=== PATIENT | female | born 1995 | race African-American/Black ===

== ENCOUNTER 2018-09-15 17:09 | Emergency (ER) | payer OTHER, SELFPAY ==
[2018-09-15 17:20] VITALS: BP 119/86; PULSE 97; RESP 18; TEMP 36.2; O2SAT 100; BMI 37.5
[2018-09-15 19:16] LABS: Bacteria Urine Moderate (10-30); Culture Indicated Urine Specimen Cultured; RBC Urine 0-1/HPF (0-5/HPF); Squamous Epithelial Cell Urine 1-5 /HPF; Transitional Epi Cells Urine 1-5/HPF (0-5/HPF); WBC Urine 5-10/HPF (0-5/HPF)
--- NOTE | 2018-09-15 22:43 | ED_ITS ---
HPI - Nausea/Vomiting/Diarrhea General Chief complaint: Nausea/Vomiting/Diarrhea Stated complaint: vomiting and diarrhea x3-4 wks Time Seen by Provider: 09/15/18 22:16 Source: patient and family Mode of arrival: ambulatory Limitations: no limitations History of Present Illness HPI Narrative: 23-year-old female, nonsmoker otherwise healthy presents with multiple family members for evaluation of nausea and vomiting which has persisted for over a month. Her symptoms were 1st evaluated about 1 month ago when she became dizzy and lightheaded and [place] She had IVs placed and was given fluids and antiemetics. Lab workup was unremarkable. Since then she has had a few episodes of syncope or near- syncope thought likely due to decreased oral intake. She denies any weight loss. She states she could be as her last. Id is a few days late. She has had no fever chills and denies any significant abdominal pain. MD complaint: nausea and vomiting Onset (ago): month(s) Description of Vomiting: watery Description of Diarrhea: none Associated Abdominal Pain: Yes Location of pain: diffuse Severity: mild Quality: cramping Relieving factors: none Associated symptoms: denies other symptoms Related Data Allergies Allergy/AdvReac Type Severity Reaction Status Date / Time No Known Drug Allergies Allergy Verified 09/15/18 17:59 Review of Systems Review of Systems All systems reviewed & are unremarkable except as noted in HPI and below Constitutional Denies chills, Denies fever(s), Denies lethargy and Denies weakness Eyes Denies change in vision, Denies eye discharge, Denies irritation and Denies loss of vision ENT Ears, Nose, Mouth, and Throat: Denies change in voice, Denies neck pain and Denies sore throat Cardiovascular Denies chest pain, Denies irregular heart rhythm, Denies lightheadedness, Denies palpitations, Denies dyspnea, Denies dyspnea on exertion and Denies orthopnea Respiratory Denies cough, Denies dyspnea, Denies dyspnea on exertion and Denies wheezing Gastrointestinal Gastrointestinal: Reports abdominal pain, Denies change in bowel habits, Denies diarrhea, Reports nausea and Reports vomiting Genitourinary Denies hematuria, Denies flank pain, Denies urinary incontinence and Denies urinary urgency Musculoskeletal Denies neck pain Integumentary/Breasts Denies pruritus, Denies erythema, Denies rash and Denies wounds Neurologic Denies confusion, Denies loss of vision and Denies weakness Psychiatric Denies anxiety, Denies confusion, Denies depression, Denies homicidal ideation and Denies suicidal ideation Endocrine Denies palpitations Hematologic/Lymphatic Denies easy bruising Allergic/Immunologic Denies wheezing [facility] Social History Smoking Status: Never smoker Exam Narrative Exam Narrative: GENERAL: This is a well-nourished, well-developed patient, in mild distress. HEAD: Atraumatic. Normocephalic. No temporal or scalp tenderness. EYES: Pupils equal round and reactive. Extraocular motions intact. No scleral icterus. No injection or drainage. ENT: Nose without bleeding, purulent drainage or septal hematoma. Throat without erythema, tonsillar hypertrophy or exudate. Uvula midline. Airway patent. NECK: Trachea midline. No JVD or lymphadenopathy. Supple, nontender, no meningeal signs. CARDIOVASCULAR: Regular rate and rhythm without murmurs, gallops, or rubs. RESPIRATORY: Clear to auscultation. Breath sounds equal bilaterally. No wheezes , rales, or rhonchi. GASTROINTESTINAL: Abdomen soft, non-tender, nondistended. No hepato-splenomegaly , or palpable masses. No guarding. EXTREMITIES: No clubbing, cyanosis, or edema. No joint tenderness, effusion, or edema noted. BACK: Nontender without deformity or crepitance. No flank tenderness. NEURO: AOx3. SKIN: No rash or erythema. Initial Vital Signs Initial Vital Signs: Vital Signs Temperature 97.1 F L 09/15/18 17:20 Pulse Rate 97 H 09/15/18 17:20 Respiratory Rate 18 09/15/18 17:20 Blood Pressure 119/86 09/15/18 17:20 Pulse Oximetry 100 09/15/18 17:20 Course Orders Ordered: ED Orders 09/15/18 19:07 Urine Culture Stat Urine Microscopic Stat 09/15/18 23:09 Basic Metabolic Panel Stat Complete Blood Count AUTO DIFF Stat HCG Quantitative Stat Discontinued Medications Sodium Chloride (Normal Saline 0.9%) 1,000 mls @ 1,000 mls/hr IV BOLUS ONE Stop: 09/15/18 23:35 Last Infusion: 09/16/18 00:17 Dose: 0 mls/hr Admin: 09/15/18 22:48 Dose: 1,000 mls/hr Ondansetron HCl (Zofran) 4 mg IV Q4HR PRN PRN Reason: Nausea And Vomiting Last Admin: 09/15/18 22:48 Dose: 4 mg Vital Signs - 8 hr 09/16/18 00:16 Temperature 98.0 F Pulse Rate 84 Respiratory Rate 16 Blood Pressure 113/72 Pulse Oximetry 100 MDM - Nausea/Vomiting/Diarrhea Lab Data Result diagrams: 09/15/18 23:09 09/15/18 23:09 Lab Results 09/15/18 09/15/18 09/15/18 Range/Units 19:07 23:09 23:09 WBC 6.9 (4.5-11.0) X10^3/uL RBC 4.70 (4.0-5.2) X10^6/uL Hgb 12.7 (12.0-16.0) g/dL Hct 38.7 (36-46) % MCV 82.4 (80-100) fL MCH 27.1 (26-34) PG MCHC 32.9 (30-36) % RDW 15.4 H (11.6-14.8) % Plt Count 486 H (150-400) X10^3/uL Neut % (Auto) 59.2 (50-75) % Lymph % (Auto) 33.3 (25-40) % [place] % (Auto) 6.2 (3-14) % Eos % (Auto) 0.5 L (2-4) % Baso % (Auto) 0.8 (0-2) % Neut # (Auto) 4100 (7721-9708) /uL Sodium (137-145) mmol/L Potassium (3.4-5.1) mmol/L Chloride (98-107) mmol/L Carbon Dioxide (22-32) mmol/L BUN (7-17) mg/dL Creatinine (0.52-1.04) mg/dL Estimated GFR (>60) mL/min BUN/Creatinine Ratio (6-22) Glucose (70-100) mg/dL Calcium (8.4-10.2) mg/dL HCG, Quant < 2.39 mIU/mL Urine RBC 0-1/hpf (0-5/HPF) Urine WBC 5-10/hpf H (0-5/HPF) Ur Squamous Epith Cells 1-5 /hpf Ur Transition Epith Cell 1-5/hpf (0-5/HPF) Urine Bacteria Moderate (10-30) H (None) Ur Culture Indicated? Specimen cultured Micro UA Comment Not Reportable 09/15/18 Range/Units 23:09 WBC (4.5-11.0) X10^3/uL RBC (4.0-5.2) X10^6/uL Hgb (12.0-16.0) g/dL Hct (36-46) % MCV (80-100) fL MCH (26-34) PG MCHC (30-36) % RDW (11.6-14.8) % Plt Count (150-400) X10^3/uL Neut % (Auto) (50-75) % Lymph % (Auto) (25-40) % [place] % (Auto) (3-14) % Eos % (Auto) (2-4) % Baso % (Auto) (0-2) % Neut # (Auto) (3955-2863) /uL Sodium 142 (137-145) mmol/L Potassium 4.3 (3.4-5.1) mmol/L Chloride 103 (98-107) mmol/L Carbon Dioxide 26 (22-32) mmol/L BUN 10 (7-17) mg/dL Creatinine 0.70 (0.52-1.04) mg/dL Estimated GFR > 60.0 (>60) mL/min BUN/Creatinine Ratio 14.3 (6-22) Glucose 90 (70-100) mg/dL Calcium 9.4 (8.4-10.2) mg/dL HCG, Quant mIU/mL Urine RBC (0-5/HPF) Urine WBC (0-5/HPF) Ur Squamous Epith Cells Ur Transition Epith Cell (0-5/HPF) Urine Bacteria (None) Ur Culture Indicated? Micro UA Comment Point of Care Testing Test Results Negative Urine Dip Bedside Urine Glucose Negative Bedside Urine Bilirubin - Negative Bedside Urine Ketone - Negative Urine Specific [place] 1.025 Bedside Urine Occult Blood - Negative Bedside Urine pH 6.5 Bedside Urine Protein +/- 15 Bedside Urine Urobilinogen - Negative Bedside Urine Nitrite + Positive Bedside Urine Leukocytes - Negative Esterase Discharge Plan Departure Patient Disposition: Home Clinical Impression: Vomiting Discharge Date/Time: 09/16/18 00:16 Interventions: ED Discharge Assessment Last Done: 09/16/18 00:16 Instructions: DI for Vomiting -- Adult Activity Restrictions/Additional Instructions: 1. Drink plenty of fluids with frequent small sips. 2. For the next 24 hours a clear liquid diet is advised. After that please employ a brat diet which would include bananas, rice, apples, toast. 3. Please take medications as directed. 4. Please follow-up with your doctor in the next 1-2 days. Call the office for an appointment. It seems reasonable to talk with them about a possible referral to a GI specialist 5. Please return to the emergency Department for any worsening or persistent symptoms, such as increasing pain or fever.
[2018-09-15] MEDS: SODIUM CHLORIDE 0.9% 1,000 ML 1000 ML IV (22:48)
[2018-09-15] MEDS: ONDANSETRON 4 MG/2 ML INJ IV (22:48)
[2018-09-15 23:23] LABS: Add Manual Diff / Slide Review NO; Basophils Percent Auto 0.8 % (0-2); Eosinophils Percent Auto 0.5 % (2-4); Hematocrit 38.7 % (36-46); Hemoglobin 12.7 g/dL (12.0-16.0); Lymphocytes Percent Auto 33.3 % (25-40); Mean Corpuscular HGB Conc 32.9 % (30-36); Mean Corpuscular Hemoglobin 27.1 PG (26-34); Mean Corpuscular Volume 82.4 fL (80-100); Monocytes Percent Auto 6.2 % (3-14); Neutrophils Absolute Auto 4100 /uL (1500-7000); Neutrophils Percent Auto 59.2 % (50-75); Platelet Count 486 X10^3/uL (150-400); Red Cell Distribution Width 15.4 % (11.6-14.8); White Blood Cell Count 6.9 X10^3/uL (4.5-11.0)
[2018-09-15 23:25] LABS: BUN Creatinine Ratio 14.3 (6-22); Blood Urea Nitrogen 10 mg/dL (7-17); Calcium 9.4 mg/dL (8.4-10.2); Carbon Dioxide 26 mmol/L (22-32); Chloride 103 mmol/L (98-107); Estimated Glomerular Filt Rate > 60.0 mL/min (>60); Glucose 90 mg/dL (70-100); HEMOLYSIS < 15 (0-50); Potassium 4.3 mmol/L (3.4-5.1); Sodium 142 mmol/L (137-145)
[2018-09-15 23:42] LABS: HCG Quantitative /Beta subunit < 2.39 mIU/mL
[2018-09-16 00:16] VITALS: BP 113/72; PULSE 84; RESP 16; TEMP 36.7; O2SAT 100
== END 2018-09-16 00:16 | disposition home or self-care (01) ==
PROVIDERS: Emergency Provider Emergency Medicine
DX: R11.10 Vomiting, unspecified (principal)
CPT/HCPCS: 36591; 80048; 81003; 81015; 81025; 84702; 85025; 87077; 87086; 87186; 96361; 96374; 99281; 99284; J2405

== ENCOUNTER 2018-12-07 10:22 | Emergency (ER) | payer OTHER, SELFPAY ==
[2018-12-07 10:31] VITALS: BP 131/95; PULSE 81; RESP 16; TEMP 36.7; O2SAT 100
--- NOTE | 2018-12-07 12:04 | ED.HA ---
HPI - Headache <Lauren Miles PA-C - Last Filed: 12/07/18 18:44> General Chief Complaint: Headache Stated Complaint: PAIN IN BACK OF HEAD LEFT SIDE Time Seen by Provider: 12/07/18 12:27 Source: patient Mode of arrival: ambulatory Limitations: no limitations History of Present Illness HPI Narrative: This generally healthy 23-year-old female complains of left-sided headache, more in the back of her head, since Thursday evening. She states that it started out mild, but persisted on Thursday despite taking acetaminophen. She states that when she woke up yesterday morning and went to get out of bed she felt dizzy ?like the room was spinning when I stood up? and states that made her fall. She states that she has not tried other medicines for the pain, but headache has persisted, also associated with photophobia and nausea. She states that she has not had any food or fluids today. She denies any vision change. She states that she has continued to have some of the dizziness intermittently, i.e. occurred again when she got out of bed this morning. She does not have any fever. She denies any neck pain. She denies any recent illness or upper respiratory symptoms. She states that she had a similar headache some years ago but more generalized, resolved after injection at the hospital. She states that she is concerned because she has a maternal aunt and great aunt who had CVA at a young age. No family history of headache or migraine, mom has a history of vertigo she says. She states that she wants to get , not currently. She states that until yesterday she had been going about her usual activities with the headache and mostly able to ignore it. Related Data Allergies Allergy/AdvReac Type Severity Reaction Status Date / Time metoclopramide [From Reglan] AdvReac Verified 12/07/18 13:03 Review of Systems <Lauren Miles PA-C - Last Filed: 12/07/18 18:44> Review of Systems ROS Unobtainable: All systems reviewed & are unremarkable except as noted in HPI and below PFSH <Lauren Miles PA-C - Last Filed: 12/07/18 18:44> Medical History Patient denies medical problems (Chronic) Surgical History No pertinent past surgical history (Chronic) Social History Smoking Status: Never smoker Social History Smoking Status: Never smoker Exam <Lauren Miles PA-C - Last Filed: 12/07/18 18:44> Narrative Exam Narrative: GENERAL APPEARANCE: Patient sitting comfortably, in no distress. HEENT: PERRL, EOMI, TMs slightly dull, normal oropharynx, no sinus TTP NECK: Supple, no masses LUNGS: Clear to auscultation bilaterally. HEART: Rate and rhythm regular without murmur, normal S1 and S2, no S3 or S4. NEUROLOGIC: Alert and oriented, normal speech and coordination. Able to elicit vertigo with whole like maneuver MUSCULOSKELETAL: Full Csp AROM, no tenderness over cervical spine or musculature Initial Vital Signs Initial Vital Signs: Vital Signs Temperature 98.1 F 12/07/18 10:31 Pulse Rate 81 12/07/18 10:31 Respiratory Rate 16 12/07/18 10:31 Blood Pressure 131/95 H 12/07/18 10:31 Pulse Oximetry 100 12/07/18 10:31 <Roland Hernandez DO - Last Filed: 12/07/18 19:43> Initial Vital Signs Initial Vital Signs: Vital Signs Temperature 98.1 F 12/07/18 10:31 Pulse Rate 81 12/07/18 10:31 Respiratory Rate 16 12/07/18 10:31 Blood Pressure 131/95 H 12/07/18 10:31 Pulse Oximetry 100 12/07/18 10:31 Course <Laruen Miles PA-C - Last Filed: 12/07/18 18:44> Additional Information: Patient is a feeling significantly improved in terms of her headache, nausea and vertigo at the time of discharge. She requested discharge secondary to receiving a phone call that a family friend had . She agreed to return if any acutely worsening symptoms again. Suspect occasional mild migraine given her previous LANDEROS associated with some photophobia and nausea Orders Ordered: Discontinued Medications Sodium Chloride (Normal Saline 0.9%) 1,000 mls @ 1,000 mls/hr IV BOLUS ONE Stop: 12/07/18 13:40 Last Infusion: 12/07/18 13:46 Dose: 0 mls/hr Admin: 12/07/18 13:04 Dose: 1,000 mls/hr Ketorolac Tromethamine (Toradol) 30 mg IV NOW ONE Stop: 12/07/18 12:42 Last Admin: 12/07/18 13:04 Dose: 30 mg Ondansetron HCl (Zofran) 4 mg IV NOW ONE Stop: 12/07/18 12:42 Last Admin: 12/07/18 13:04 Dose: 4 mg Vital Signs - 8 hr 12/07/18 13:02 Pulse Rate 72 Respiratory Rate 22 Blood Pressure [Left Arm] 122/72 Pulse Oximetry 99 <Roland Hernandez DO - Last Filed: 12/07/18 19:43> Orders Ordered: Discontinued Medications Sodium Chloride (Normal Saline 0.9%) 1,000 mls @ 1,000 mls/hr IV BOLUS ONE Stop: 12/07/18 13:40 Last Infusion: 12/07/18 13:46 Dose: 0 mls/hr Admin: 12/07/18 13:04 Dose: 1,000 mls/hr Ketorolac Tromethamine (Toradol) 30 mg IV NOW ONE Stop: 12/07/18 12:42 Last Admin: 12/07/18 13:04 Dose: 30 mg Ondansetron HCl (Zofran) 4 mg IV NOW ONE Stop: 12/07/18 12:42 Last Admin: 12/07/18 13:04 Dose: 4 mg Vital Signs - 8 hr 12/07/18 13:02 Pulse Rate 72 Respiratory Rate 22 Blood Pressure [Left Arm] 122/72 Pulse Oximetry 99 MDM - Headache <Lauren Miles PA-C - Last Filed: 12/07/18 18:44> Lab Data Attestation: I reviewed the patient's lab results. Point of Care Testing Test Results Negative Urine Dip Bedside Urine Glucose Negative Bedside Urine Bilirubin - Negative Bedside Urine Ketone - Negative Urine Specific [place] 1.025 Bedside Urine Occult Blood +/- Bedside Urine Protein - Negative Bedside Urine Urobilinogen - Negative Bedside Urine Nitrite - Negative Bedside Urine Leukocytes - Negative Esterase <Roland Hernandez DO - Last Filed: 12/07/18 19:43> Lab Data Point of Care Testing Test Results Negative Urine Dip Bedside Urine Glucose Negative Bedside Urine Bilirubin - Negative Bedside Urine Ketone - Negative Urine Specific [place] 1.025 Bedside Urine Occult Blood +/- Bedside Urine Protein - Negative Bedside Urine Urobilinogen - Negative Bedside Urine Nitrite - Negative Bedside Urine Leukocytes - Negative Esterase Discharge Plan Departure Patient Disposition: Home Clinical Impression: Vertigo Migraine Qualifiers: Migraine type: unspecified Status migrainosus presence: without status migrainosus Intractability: not intractable Qualified Code(s): G43.909 - Migraine, unspecified, not intractable, without status migrainosus Discharge Date/Time: 12/07/18 13:48 Interventions: ED Discharge Assessment Last Done: 12/07/18 13:47 Instructions: DI for Vertigo, DI for Headache Activity Restrictions/Additional Instructions: Since you are feeling better, you can return home and rest. You should return as we talked about if you have any acutely worsening symptoms. 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 You can take 25-50 mg every 6 hr as needed. This can make you sleepy, and you should not be driving until your vertigo is better. Please be sure to change positions very slowly, avoid standing up or turning quickly as that tends to exacerbate vertigo. Please try taking ibuprofen 800 mg every 8 hr if needed for headache, as that family of medicines seems to work better for you than Tylenol. Please follow-[place] [place] in the next couple of days for recheck. Referrals: [facility] [Provider Group] <Roland Hernandez DO - Last Filed: 12/07/18 19:43> Cosign ED Attending Trevor Attestation: I was immediately available in the department for consultation. Documentation has been reviewed. I agree with assessment and plan.
[2018-12-07 13:02] VITALS: BP 122/72; PULSE 72; RESP 22; O2SAT 99
[2018-12-07] MEDS: KETOROLAC 60 MG/2 ML VIAL 30 MG IV (13:04)
[2018-12-07] MEDS: SODIUM CHLORIDE 0.9% 1,000 ML 1000 ML IV (13:04)
[2018-12-07] MEDS: ONDANSETRON 4 MG/2 ML INJ IV (13:04)
== END 2018-12-07 13:48 | disposition home or self-care (01) ==
PROVIDERS: Emergency Provider Internal Medicine
DX: R51 Headache (principal); R42 Dizziness and giddiness
CPT/HCPCS: 36591; 81003; 81025; 96361; 96374; 96375; 99283; 99284; J1885; J2405

== ENCOUNTER 2018-12-10 03:39 | Emergency (ER) | payer OTHER, SELFPAY ==
[2018-12-10 03:49] VITALS: BP 120/80; PULSE 92; RESP 18; TEMP 36.6; O2SAT 98; BMI 38.0
[2018-12-10] MEDS: PROCHLORPERAZINE 10 MG/2 ML VIAL IV (04:19)
[2018-12-10] MEDS: diphenhydrAMINE 50 MG/ML VIAL 12.5 MG IM (04:19)
[2018-12-10] MEDS: KETOROLAC 60 MG/2 ML VIAL IM (04:19)
--- NOTE | 2018-12-10 04:20 | ED_ITS ---
HPI - Headache General Chief Complaint: Headache Stated Complaint: severe headache for a week Time Seen by Provider: 12/10/18 03:47 Source: patient Mode of arrival: ambulatory Limitations: no limitations History of Present Illness HPI Narrative: Patient complains left-sided headache, mainly in her yazidism but also behind her ear and in her eye. She states this been going on on and off for the last week. Patient denies vomiting particularly associated with the headache, but does note that she has been having issues with nausea and vomiting for months states she has struggled to hold anything down. She states Zofran has been helpful in the past, but that she is out. Patient denies recent head injury. No fever. Patient states she has been smoking marijuana a daily basis to try to get rid of the vomiting, but it has not. Related Data Previous Rx's Medication Instructions Recorded ondansetron 4 mg PO Q6-8H PRN #20 tab 12/10/18 Allergies Allergy/AdvReac Type Severity Reaction Status Date / Time metoclopramide [From Reglan] AdvReac Verified 12/07/18 13:03 Review of Systems Constitutional Denies chills, Denies fever(s), Reports headache(s), Denies lethargy and Denies weakness Eyes Denies change in vision, Denies eye discharge, Denies irritation and Denies loss of vision ENT Ears, Nose, Mouth, and Throat: Denies change in voice, Reports headache(s), Denies neck pain and Denies sore throat Cardiovascular Denies chest pain, Denies irregular heart rhythm, Denies lightheadedness, Denies palpitations, Denies dyspnea, Denies dyspnea on exertion and Denies orthopnea Respiratory Denies cough, Denies dyspnea, Denies dyspnea on exertion and Denies wheezing Gastrointestinal Gastrointestinal: Denies abdominal pain, Denies change in bowel habits, Denies diarrhea, Denies nausea and Reports vomiting Genitourinary Denies hematuria, Denies flank pain, Denies urinary incontinence and Denies urinary urgency Musculoskeletal Denies neck pain Integumentary/Breasts Denies pruritus, Denies erythema, Denies rash and Denies wounds Neurologic Denies confusion, Reports headache(s), Denies loss of vision and Denies weakness Psychiatric Denies anxiety, Denies confusion, Denies depression, Denies homicidal ideation and Denies suicidal ideation Endocrine Denies palpitations Hematologic/Lymphatic Denies easy bruising Allergic/Immunologic Denies wheezing PFSH Medical History Patient denies medical problems (Chronic) Surgical History No pertinent past surgical history (Chronic) Social History Smoking Status: Never smoker Social History Smoking Status: Never smoker Exam Initial Vital Signs Initial Vital Signs: Vital Signs Temperature 97.8 F 12/10/18 03:49 Pulse Rate 92 H 12/10/18 03:49 Respiratory Rate 18 12/10/18 03:49 Blood Pressure 120/80 12/10/18 03:49 Pulse Oximetry 98 12/10/18 03:49 Const General: cooperative and well developed Nutritional Appearance: well nourished Orientation: alert, awake, oriented x3 and not confused HENMT Head: normocephalic, atraumatic and other ( mild tenderness over left yazidism) Ears: external ears normal Nose: external nose normal and No nasal discharge Face and sinus: sinuses nontender, face symmetric and No dry mucous membranes Mouth: oral mucosae normal and moist mucous membranes Teeth and gingiva: dentition normal Eyes General: appearance normal, both eyes and all related structures Eyelids: eyelids normal Conjunctivae: conjunctivae normal Sclera: sclerae normal Pupils: PERRL EOM: EOM intact bilaterally Neck Neck: normal visual inspection, trachea midline, No lymphadenopathy, No midline deformity and No JVD Lymphatic: No lymphedema Chest Chest: normal inspection of the chest Resp Effort & Inspection: normal respiratory effort, able to speak in complete sentences, no respiratory distress and no use of accessory muscles Auscultation: clear to auscultation bilaterally, no rales, no rhonchi and no wheezes Cardio Rate: regular rate Rhythm: regular rhythm Heart Sounds: no click, no gallops, no murmurs and no rubs Pulses: normal peripheral pulses GI Inspection: non-distended Palpation: soft, no hepatosplenomegaly, No guarding, No pulsatile mass and No tender Auscultation: normal bowel sounds Back/Spine/Pelvis Back: No CVA tenderness Cervical Spine: cervical ROM normal and No pain with cervical ROM Thoracic/Lumbar Spine: thoracic and lumbar spine normal to inspection Skin General: no rashes or lesions noted, No jaundice and No petechiae Neuro General: alert, oriented x3, gait normal and no focal motor deficits Speech: speech normal Extrem General: full ROM, no clubbing, cyanosis or edema, no pedal edema and no calf tenderness Psych Appearance: well kempt Mental Status: mental status grossly normal Attitude: cooperative Thought Content: normal and suicidality Judgment: judgment good Course Course Narrative: patient was very well-appearing, and I suspected a combination of tension and migraine headache. Patient was given IM doses of Toradol, Phenergan, and Benadryl, after which she did report some relief of her symptoms. I did not feel head CT was indicated at this time, as patient has no neurologic deficits and no infectious symptoms. Patient was deemed stable for discharge home. We have discussed the usual indications for return, as well as symptomatic management at home. Orders Ordered: Discontinued Medications Diphenhydramine HCl (Benadryl) 12.5 mg IM NOW ONE Stop: 12/10/18 04:05 Last Admin: 12/10/18 04:19 Dose: 12.5 mg Ketorolac Tromethamine (Toradol) 60 mg IM NOW ONE Stop: 12/10/18 04:05 Last Admin: 12/10/18 04:19 Dose: 60 mg Prochlorperazine (Compazine) 10 mg IV NOW ONE Stop: 12/10/18 04:05 Last Admin: 12/10/18 04:19 Dose: 10 mg Vital Signs - 8 hr 12/10/18 03:49 Temperature 97.8 F Pulse Rate 92 H Respiratory Rate 18 Blood Pressure 120/80 Pulse Oximetry 98 MDM - Headache Medical Records Attestation: I reviewed the patient's medical records. Discharge Plan Departure Patient Disposition: Home Clinical Impression: Headache Qualifiers: Headache type: unspecified Headache chronicity pattern: acute headache Intractability: not intractable Qualified Code(s): R51 - Headache Discharge Date/Time: 12/10/18 04:55 Interventions: ED Discharge Assessment Last Done: 12/10/18 04:54 Instructions: DI for Headache Prescriptions: New ondansetron 4 mg tablet,disintegrating 4 mg PO Q6-8H PRN (Reason: nausea and vomiting) Qty: 20 RF: 0 Referrals: [facility] [Provider Group]
[2018-12-10 04:49] VITALS: BP 114/77; PULSE 86; RESP 18; O2SAT 98
== END 2018-12-10 04:55 | disposition home or self-care (01) ==
PROVIDERS: Emergency Provider Emergency Medicine
DX: R51 Headache (principal)
CPT/HCPCS: 96372; 96374; 99282; 99284; J0780; J1200; J1885

== ENCOUNTER 2019-02-15 13:01 | Emergency (ER) | payer OTHER, SELFPAY ==
[2019-02-15 13:15] VITALS: BP 132/84; PULSE 87; RESP 16; TEMP 36.8; O2SAT 100; BMI 41.6
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
== END 2019-02-15 15:18 | disposition home or self-care (01) ==
PROVIDERS: Emergency Provider Emergency Medicine
DX: F43.0 Acute stress reaction (principal); F32.9 Major depressive disorder, single episode, unspecified
CPT/HCPCS: 99282; 99283

== ENCOUNTER 2019-03-09 23:15 | Emergency (ER) | payer OTHER, SELFPAY ==
[2019-03-09 23:15] VITALS: BP 128/79; PULSE 92; RESP 20; TEMP 36.8; O2SAT 98; BMI 40.7
--- NOTE | 2019-03-09 23:20 | DI.CT.S_ITS ---
PROCEDURE: CT FACIAL BONES WO CON INDICATIONS: Hit Right mandible with ball TECHNIQUE: Noncontrast 2.5 mm thick axial images acquired from the mandible through the frontal sinuses, with coronal and sagittal reformatting. For radiation dose reduction, the following was used: automated exposure control, adjustment of mA and/or kV according to patient size. COMPARISON: [facility], CR, XR MANDIBLE MIN 4V, 03/10/2019, 0:47. FINDINGS: Image quality: Excellent. Bones and teeth: No mandibular fractures. There is anterior subluxation of the left mandibular condyle at the temporomandibular joint. Orbital hayes are intact. Sinus hayes show no fracture or deformity. Nasal bones and septum are intact. Zygomatic arches are intact. Pterygoid plates are intact. Visualized portions of the skull base and auditory canals are intact. Sinuses: Paranasal sinuses are aerated, without fluid levels, mucosal thickening, or mucoceles. Mastoid air cells are aerated. Soft tissues: No edema, masses, or fluid collections. No enlarged lymph nodes. No soft tissue lacerations or debris. Vascular: Visualized vascular structures appear normal in the absence of contrast. Bony vascular foramina and canals are intact. IMPRESSION: 1. No fracture in right mandible. Right temporal mandibular joint is anatomically seated. 2. Anterior subluxation of the left mandibular condyle at the temporal mandibular joint. No significant discrepancy with the welder 2nd shift radiology preliminary report. Dictated by: Silverio Montenegro M.D. on 03/10/2019 at 8:01 Approved by: Silverio Montenegro M.D. on 03/10/2019 at 9:43
--- NOTE | 2019-03-09 23:21 | ED.DENTAL ---
HPI - Dental/Oral General Chief complaint: Dental/Oral Stated complaint: poss dislocated jaw playing softball Time Seen by Provider: 03/09/19 23:17 Source: patient Mode of arrival: ambulatory Limitations: no limitations History of Present Illness HPI Narrative: 23-year-old female here for what she thinks is a dislocated jaw. She states that earlier today she was hit on the right side of face with a softball. States she had pain afterwards. Slept for awhile this afternoon because the pain but woke up stating that she feels like her jaw is ?out?. He is able to open and close it somewhat but is having quite a bit of discomfort. No loose teeth are missing teeth. Related Data Allergies Allergy/AdvReac Type Severity Reaction Status Date / Time metoclopramide [From Reglan] AdvReac Verified 12/07/18 13:03 Review of Systems Constitutional Reports headache(s) Eyes Denies diplopia ENT Ears, Nose, Mouth, and Throat: Denies dental pain, Reports facial pain, Reports headache(s), Denies sore throat and Denies throat swelling Comments: Jaw pain Cardiovascular Denies dyspnea Respiratory Denies dyspnea Musculoskeletal Denies myalgias and Denies arthralgias Integumentary/Breasts Denies rash Neurologic Reports headache(s) Hematologic/Lymphatic Denies easy bleeding and Denies easy bruising Allergic/Immunologic Denies throat swelling [facility] Medical History Patient denies medical problems (Chronic) Social History Smoking Status: Never smoker Exam Initial Vital Signs Initial Vital Signs: Vital Signs Temperature 98.2 F 03/09/19 23:15 Pulse Rate 92 H 03/09/19 23:15 Respiratory Rate 20 03/09/19 23:15 Blood Pressure 128/79 03/09/19 23:15 Pulse Oximetry 98 03/09/19 23:15 Const General: cooperative, well developed, well groomed and No acute distress Orientation: alert, awake and oriented x3 HENMT Head: normal to inspection and normocephalic Ears: TM's normal bilaterally Nose: external nose normal Face and sinus: no edema Mouth: oral mucosae normal, lip normal, tongue normal, abnormal TMJ, trismus and restricted motion Teeth and gingiva: dentition normal Skin Lesions: no lesions Rashes: no rashes Neuro General: alert and awake Cognition: normal cognition Extrem General: normal to inspection and capillary refill normal Psych Appearance: grossly normal and well kempt Procedures Orthopedic Joint Reduction Joint #1: Time Out Performed: Yes Side: left Joint Reduction Location: other (TMJ) Analgesia: other (IV Valium) Technique used: direct manipulation Post-reduction neuro exam: intact and no change Post-reduction vascular: intact and no change Post Reduction X-Ray Obtained: Yes Post Reduction X-Ray Results: reduced Splint Applied: No Patient Tolerated Procedure: Well Course Orders Ordered: ED Orders 03/09/19 23:20 CT facial bones wo con Stat 03/10/19 00:38 XR mandible min 4V Stat Discontinued Medications Diazepam (Valium) 2 mg IV NOW ONE Stop: 03/10/19 00:06 Last Admin: 03/10/19 00:14 Dose: 2 mg Ondansetron HCl (Zofran) 4 mg IV NOW ONE Stop: 03/10/19 00:06 Last Admin: 03/10/19 00:15 Dose: 4 mg Vital Signs - 8 hr 03/09/19 23:15 03/10/19 00:33 Temperature 98.2 F Pulse Rate 92 H 77 Respiratory Rate 20 Blood Pressure 128/79 Blood Pressure [Left Arm] 116/73 Pulse Oximetry 98 100 MDM - Dental/Oral Imaging Data CT facial bones without contrast: Radiologist's impression: Anterior subluxation left TMJ joint without dislocation Right temporomandibular joint is unremarkable. No evidence of mandibular fracture Mandible x-ray: Attestation: I personally reviewed and interpreted this imaging study as follows: My impression: Reduction of left TMJ subluxation [facility] Narrative Medical decision making narrative: Patient without respiratory compromise. The left-sided TMJ subluxation was reduced with direct manipulation after IV Valium. The patient has no airway compromise. No fractures noted on the CT scan. She was given return precautions. Instructed that she should avoid opening her mouth wide for the next week and also soft diet. She was given return precautions. She expressed understanding and agreement plan Discharge Plan Departure Patient Disposition: Home Clinical Impression: TMJ dislocation Qualifiers: Encounter type: initial encounter Qualified Code(s): S03.00XA - Dislocation of jaw, unspecified side, initial encounter Activity Restrictions/Additional Instructions: There were no fractures on the CT scanner the x-ray. Avoid situations where your opening her mouth very wide for the next week. Also recommend a soft diet for the next week. Contact your primary care doctor for follow-up. Return to the emergency department for any new or worsening symptoms
--- NOTE | 2019-03-09 23:43 | PC.NURSE ---
Able to open and close her mouth,no broken or loose teeth,able to swallow without difficulty.Pain in right jaw with opening her mouth.
[2019-03-10] MEDS: diazePAM 10 MG/2 ML SYRINGE 2 MG IV (00:14)
[2019-03-10] MEDS: ONDANSETRON 4 MG/2 ML INJ IV (00:15)
[2019-03-10 00:33] VITALS: BP 116/73; PULSE 77; O2SAT 100
--- NOTE | 2019-03-10 00:35 | PC.NURSE ---
DR. Akins was able to reduce the dislocated jaw.She tolerated it well after IV Valium.
--- NOTE | 2019-03-10 00:38 | DI.RAD.S_ITS ---
PROCEDURE: XR MANDIBLE MIN 4V INDICATIONS: post reduction Left TMJ subluxation TECHNIQUE: 1 views of the mandible were acquired. COMPARISON: [facility], CT, CT FACIAL BONES WO [facility], 03/09/2019, 23:22. FINDINGS: Evaluation of the mandible is limited as only a single oblique image was provided. Bony alignment appears to be grossly within normal limits. IMPRESSION: Mandibular alignment appears to be within normal limits. Note: The preliminary ED physician interpretation and the final report are concordant. Dictated by: Amadou Jones M.D. on 03/10/2019 at 8:12 Approved by: Amadou Jones M.D. on 03/10/2019 at 8:14
[2019-03-10 01:18] VITALS: BP 122/80; PULSE 76; RESP 18; O2SAT 99
== END 2019-03-10 01:19 | disposition home or self-care (01) ==
PROVIDERS: Emergency Provider Emergency Medicine
DX: S03.02XA Dislocation of jaw, left side, initial encounter (principal); W21.07XA Struck by softball, initial encounter
CPT/HCPCS: 21480; 70110; 70486; 96374; 96375; 99282; 99284; J2405; J3360